=== PATIENT | male | born 1990 | race Caucasian/White ===

== ENCOUNTER 2019-12-25 10:07 | Emergency (ER) | payer OTHER ==
[~2019-12-25] VITALS: Ht 200.7 cm; Wt 113.4 kg
[~2019-12-25 10:07] MED LIST: ALBU90OI INH; DEXT30SU PO
[2019-12-25] MEDS ORDERED: MOTRIN IB200 MG PO (11:17)
== END 2019-12-25 11:38 | disposition home or self-care (01) ==
LOC: ER 10:07
DX: L02.31 Cutaneous abscess of buttock (principal); F17.200 Nicotine dependence, unspecified, uncomplicated
CPT/HCPCS: 10061; 90471; 90714; 99283-25

== ENCOUNTER 2021-02-12 10:00 | Emergency (ER) | payer OTHER ==
[~2021-02-12] VITALS: Ht 200.7 cm; Wt 124.7 kg
[~2021-02-12 10:00] MED LIST changes: +MOTRIN IB200 MG PO
[2021-02-12] MEDS ORDERED: Amoxicillin500 MG PO (10:47)
== END 2021-02-12 11:00 | disposition home or self-care (01) ==
LOC: ER 10:00
DX: K02.9 Dental caries, unspecified (principal); F17.210 Nicotine dependence, cigarettes, uncomplicated
CPT/HCPCS: 99282